=== PATIENT | male | born 1975 | race Caucasian/White ===

== ENCOUNTER 2023-03-26 16:47 | Emergency (ER) | payer OTHER ==
[~2023-03-26] VITALS: Ht 188 cm; Wt 100.4 kg
[2023-03-26 18:04] LABS: BASO # 0.1 10^3/uL (0.0-0.2); BASO % 0.9 % (0.0-1.0); EOS # 0.3 10^3/uL (0.0-0.5); HEMATOCRIT 45.6 % (42.0-52.0); HEMOGLOBIN 15.1 g/dl (13.5-17.5); LYMPH # 2.4 10^3/uL (1.5-5.0); LYMPH % 25.5 % (24.0-44.0); MEAN CORPUSCULAR HEMOGLOBIN 29.3 pg (27.0-33.0); MEAN CORPUSCULAR HGB CONC 33.1 g/dl (32.0-36.5); MEAN CORPUSCULAR VOLUME 88.5 fl (80.0-96.0); MONO # 0.6 10^3/uL (0.0-0.8); MONO % 6.6 % (2.0-8.0); NEUTROPHILS # 5.9 10^3/uL (1.5-8.5); NEUTROPHILS % 63.8 % (36.0-66.0); PLATELET COUNT, AUTOMATED 257 10^3/uL (150-450); RED BLOOD COUNT 5.15 10^6/uL (4.30-6.10); WHITE BLOOD COUNT 9.3 10^3/uL (4.0-10.0)
[2023-03-26 18:30] LABS: BLOOD UREA NITROGEN 10 MG/DL (9-23); CALCIUM LEVEL 9.3 MG/DL (8.5-10.1); CARBON DIOXIDE LEVEL 27 MMOL/L (20-31); CHLORIDE LEVEL 108 MMOL/L (98-107); CK-MB VALUE MASS < 1.0 NG/ML (<3.6); CPK CREATINE PHOSPHOKINASE 87 U/L (46-171); CREATININE FOR GFR 0.81 MG/DL (0.70-1.30); GLOMERULAR FILTRATION RATE > 60.0 (>60); GLUCOSE, FASTING 101 MG/DL (60-100); MB/CK RELATIVE INDEX 1.14 (< OR =4); POTASSIUM SERUM 3.9 MMOL/L (3.5-5.1); SODIUM LEVEL 141 MMOL/L (136-145)
[2023-03-26 19:20] LABS: CK-MB VALUE MASS < 1.0 NG/ML (<3.6)
[2023-03-26 19:23] LABS: CPK CREATINE PHOSPHOKINASE 96 U/L (46-171); MB/CK RELATIVE INDEX 1.04 (< OR =4)
[2023-03-26 21:41] VITALS: BP 136/86; TEMP 98.8; O2SAT 98
[2023-03-26] MEDS ORDERED: ATOR80TA59 (21:55)
[2023-03-26] MEDS ORDERED: PANT40TA29 (21:55)
[2023-03-26] MEDS ORDERED: CETI-24 (21:55)
[2023-03-26] MEDS ORDERED: LISI5TAB11 (21:55)
[2023-03-26] MEDS ORDERED: OLOP5DRO17 (21:55)
[2023-03-26] MEDS ORDERED: FLUT50SP17 (21:55)
[2023-03-26] MEDS ORDERED: ASPI-226 (21:55)
[2023-03-26] MEDS ORDERED: METO1TAB32 (21:55)
[2023-03-26 22:55] LABS: CK-MB VALUE MASS < 1.0 NG/ML (<3.6); MAGNESIUM LEVEL 2.1 MG/DL (1.8-2.4)
[2023-03-26 22:58] LABS: THYROID STIMULATING HORMONE 1.991 uIU/ML (0.55-4.78)
[2023-03-26 22:59] LABS: FREE T4 1.16 NG/DL (0.89-1.76)
[2023-03-26 23:04] LABS: CPK CREATINE PHOSPHOKINASE 86 U/L (46-171); MB/CK RELATIVE INDEX 1.16 (< OR =4)
== END 2023-03-26 23:13 | disposition home or self-care (01) ==
LOC: M ED 16:47
DX: R07.89 Other chest pain (principal); I25.10 Atherosclerotic heart disease of native coronary artery without angina pectoris; I25.2 Old myocardial infarction; F17.200 Nicotine dependence, unspecified, uncomplicated

== ENCOUNTER → 2023-08-22 | Outpatient (CLI) | payer OTHER ==
[~2023-08-22] MED LIST: ASPI-226; ATOR80TA59; CETI-24; FLUTISP; LISI5TAB11; METO1TAB32; OLOP5DRO17; PANT40TA29
== END ==
LOC: M PLAIMG 11:41
PROVIDERS: ATTEND Internal Medicine Cardiovascular Disease
DX: R94.31 Abnormal electrocardiogram [ECG] [EKG] (principal); I25.10 Atherosclerotic heart disease of native coronary artery without angina pectoris; I10 Essential (primary) hypertension

== ENCOUNTER → 2024-01-21 | Outpatient (CLI) | payer OTHER | LOC: M EKG 13:09 | PROVIDERS: ATTEND Internal Medicine Cardiovascular Disease | DX: R00.2 Palpitations (principal) ==

== ENCOUNTER → 2024-09-15 | Outpatient (REF) | LOC: M PLAIMG 12:50 | PROVIDERS: ATTEND Internal Medicine | DX: R52 Pain, unspecified (principal) ==